=== PATIENT | male | born 1965 | race Caucasian/White ===

== ENCOUNTER 2022-05-21 09:33 | Outpatient (CLI) | payer OTHER ==
[2022-05-21] MEDS ORDERED: GADOTERATE MEGLUMINE 7.5 MMOL/15 ML VIAL IV ONE (10:19)
== END 2022-05-21 18:41 | disposition home or self-care (01) ==
LOC: SMI 09:33
PROVIDERS: ATTEND Ophthalmology
DX: H57.12 Ocular pain, left eye (principal); H53.10 Unspecified subjective visual disturbances; J34.89 Other specified disorders of nose and nasal sinuses
CPT/HCPCS: 70553; 70543; A9575